=== PATIENT | female | born 1970 | race Caucasian/White ===

== ENCOUNTER 2024-11-29 15:15 | Emergency (ER) | payer OTHER ==
[~2024-11-29] VITALS: Ht 162.6 cm; Wt 90.7 kg
[~2024-11-29 15:15] MED LIST: BISA5EC PO; CIPR500 PO; IBUP600 PO; ONDA4ODT MM; OXYACE5T PO; OXYC5 PO; PROM25 PO
[2024-11-29] MEDS ORDERED: Ketorolac Tromethamine 15mg Vial IM ONE (17:25)
[2024-11-29] MEDS ORDERED: Lidocaine 4% 1 Patch TOP ONE (17:25)
[2024-11-29] MEDS ORDERED: Robaxin750 MG PO (18:40)
== END 2024-11-29 18:47 | disposition home or self-care (01) ==
LOC: ER 15:15
DX: M54.2 Cervicalgia (principal); Z88.5 Allergy status to narcotic agent
CPT/HCPCS: 72040; 96372; 99283-25; A9270; J1885